=== PATIENT | male | born 1985 | race Caucasian/White ===

== ENCOUNTER 2018-06-07 13:26 | Emergency (ER) | payer OTHER ==
[~2018-06-07] VITALS: Ht 182.8 cm; Wt 72.6 kg
[2018-06-07] MEDS ORDERED: NARCAN4 MG NAS (16:42)
== END 2018-06-07 16:48 | disposition home or self-care (01) ==
LOC: ED 13:26
DX: T40.4X1A Poisoning by other synthetic narcotics, accidental (unintentional), initial encounter (principal); G44.40 Drug-induced headache, not elsewhere classified, not intractable; F11.10 Opioid abuse, uncomplicated; Y92.89 Other specified places as the place of occurrence of the external cause

== ENCOUNTER 2018-11-24 17:51 | Emergency (ER) | payer SELFPAY ==
[~2018-11-24 17:51] MED LIST: NARCAN4 MG NAS
[2018-11-24] MEDS ORDERED: CORTISPORIN SUS10 ML OT (18:16)
== END 2018-11-24 18:27 | disposition home or self-care (01) ==
LOC: ED 17:51
DX: H92.02 Otalgia, left ear (principal)